=== PATIENT | male | born 1955 | race Caucasian/White ===

== ENCOUNTER → 2016-06-26 | Outpatient (CLI) | payer OTHER ==
[~2016-06-26] MED LIST: BENZOCAINE ONE 20% MUCOSAL SPRAY.; FENTANYL PF 100 MCG/2 ML VIAL. ONE; IV NORMAL SALINE 1000ML BAG 1,000 ML ONE; MIDAZOLAM HCL 2 MG/2 ML VIAL. ONE
== END | disposition home or self-care (01) ==
LOC: PCVCINTER 08:14
PROVIDERS: ATTEND Internal Medicine
DX: I48.91 Unspecified atrial fibrillation (principal); I34.0 Nonrheumatic mitral (valve) insufficiency; I37.1 Nonrheumatic pulmonary valve insufficiency; I10 Essential (primary) hypertension; E78.5 Hyperlipidemia, unspecified
CPT/HCPCS: 92960; 93005; 93312; 93325; J2250; J3010; J7030

== ENCOUNTER → 2017-02-09 | Outpatient (CLI) | payer OTHER ==
--- NOTE | 2017-02-09 18:37 | PCVCIMAG ---
APPROVED REPORT Exam: Stress Echocardiogram Indication: A Fib Ablation, HTN, HLP Patient Location: Echo lab Stress Nurse: Aaliyah Redd RN Status: routine Ht: 6 ft 4 in HR: 60 bpm BP: 156/86 mmHg Rhythm: NSR Procedure The patient underwent an Exercise Stress Test using the Humphrey Protocol. Blood pressure, heart rate, and EKG were monitored. An Echocardiogram was performed by geotechnical laboratory technician in four stages in quad fashion. At peak stress, four selected images were obtained and placed side by side with resting images for comparison. Stress Test Details Stress Test: Exercise stress testing was performed using a Humphrey protocol. HR Resting HR: 60 bpmMax Heart Rate (APMHR): 158 bpm Max HR Achieved: 136 bpmTarget HR (85% APMHR): 134 bpm % of APMHR: 86 Recovery HR: 83 bpm HR response to stress: Normal HR response to stress BP Resting BP: 156/86 mmHg Max BP: 204/80 mmHg Recovery BP: 160/80 mmHg ECG Resting ECG: Sinus Rhythm Stress ECG: Sinus Rhythm ST Change: Inferior and lateral ST depression and T wave inversion Arrhythmia: None Recovery ECG: Sinus Rhythm Recovery ST Change: ST changes resolved with recovery Recovery Arrhythmia: None Clinical Reason for Termination: Maximal effort Stress Symptoms: Dyspnea Exercise duration: 14 min 20 sec Highest Stage Achieved: Stage 5: 5.0 mph at 18% grade. Exercise capacity: 17.5 METs Overall Exercise Capacity for Age: Excellent Scale: Active Pre-Stress Echo The resting Echocardiogram showed normal left ventricular contractility with an estimated Ejection Fraction of about >55%. Normal wall motion in all segments on baseline images. Post-Stress Echo The stress Echocardiogram showed normal left ventricular contractility with an estimated Ejection Fraction of about 65%. Normal augmentation of wall motion in all segments on post stress images. Clinical Equivocal ECG evidence for ischemia. Conclusion Clinical Response: Non-ischemic Exercise Capacity: Superior Stress ECG Response: Ischemic Stress Echo Images: Non-ischemic The left ventricle is normal in size and wall thickness in both the rest and stress images. False positive EKG changes consistent with previously noted exams. Other Information Study Quality: Adequate <Conclusion> The left ventricle is normal in size and wall thickness in both the rest and stress images. False positive EKG changes consistent with previously noted exams.
== END | disposition home or self-care (01) ==
LOC: PCVCIMAG 13:48
PROVIDERS: ATTEND Internal Medicine Cardiovascular Disease
DX: I48.91 Unspecified atrial fibrillation (principal); I10 Essential (primary) hypertension; E78.00 Pure hypercholesterolemia, unspecified
CPT/HCPCS: 93325; 93351

== ENCOUNTER → 2017-02-16 | Outpatient (CLI) | payer OTHER ==
--- NOTE | 2017-02-16 12:21 | PCVCIMAG ---
APPROVED REPORT Patient Location: Out-Patient Indications Stenosis Doppler Spectral Velocity Analysis PSV / EDVPSV / EDV ICA/CCA ICA/CCA Findings The right carotid bulb has mild plaque. The right proximal internal carotid artery shows no significant stenosis. The right common carotid artery shows no significant stenosis. The right external carotid artery shows no significant stenosis. The left carotid bulb has mild calcified plaque. The left proximal internal carotid artery shows no significant stenosis. The left common carotid artery shows no significant stenosis. The left external carotid artery shows no significant stenosis. Conclusion 1. Mild plaquing involving both carotid arteries without significant stenosis 2. Antegrade vertebral flow
== END | disposition home or self-care (01) ==
LOC: PCVCIMAG 11:00
PROVIDERS: ATTEND Internal Medicine Cardiovascular Disease
DX: I65.23 Occlusion and stenosis of bilateral carotid arteries (principal); I48.91 Unspecified atrial fibrillation; I10 Essential (primary) hypertension; E78.00 Pure hypercholesterolemia, unspecified; Z87.891 Personal history of nicotine dependence; Z79.82 Long term (current) use of aspirin; Z79.899 Other long term (current) drug therapy
CPT/HCPCS: 93880

== ENCOUNTER → 2018-06-07 | Outpatient (CLI) | payer OTHER ==
--- NOTE | 2018-06-07 17:17 | PCVCIMAG ---
APPROVED REPORT Study performed: 06/07/2018 15:55:16 Exam: Stress Echocardiogram Indication: CAD Patient Location: Echo lab Stress Nurse: Treva Pires RN Room #: 2 Status: routine Ht: 6 ft 4 in HR: 69 bpm BP: 148/98 mmHg Rhythm: NSR Medical History Medical History: CAD non obstructive,, Hyperlipidemia Cardiac Risk Factors: Hyperlipidemia, FHX of CAD Previous Cardiac Procedures: a fib ablation Pretest Chest Pain Characteristics: No chest pain Exercise History: Physically active Procedure The patient underwent an Exercise Stress Test using the Humphrey Protocol. Blood pressure, heart rate, and EKG were monitored. An Echocardiogram was performed by spring manufacturing set up technician in four stages in quad fashion. At peak stress, four selected images were obtained and placed side by side with resting images for comparison. Stress Test Details Stress Test: Exercise stress testing was performed using a Humphrey protocol. HR Resting HR: 69 bpmMax Heart Rate (APMHR): 156 bpm Max HR Achieved: 126 bpmTarget HR (85% APMHR): 132 bpm % of APMHR: 80 Recovery HR: 78 bpm HR response to stress: Blunted HR response to stress BP Resting BP: 148/98 mmHg Max BP: 182/88 mmHg Recovery BP: 142/84 mmHg BP response to stress: Normal blood pressure response to stress. ECG Resting ECG: Sinus Rhythm, NSSTT changes Stress ECG: Sinus Rhythm ST Change: Downsloping ST depression Arrhythmia: Rare PAC, PVC Recovery ECG: Sinus Rhythm, nonspecific ST-T abnormalities Recovery ST Change: Downsloping ST depression Recovery ST Deviation: -1.0 mm Recovery Arrhythmia: none Clinical Reason for Termination: Maximal effort Stress Symptoms: none Exercise duration: 13 min 21 sec Highest Stage Achieved: Stage 5: 5.0 mph at 18% grade. Exercise capacity: 17.5 METs Overall Exercise Capacity for Age: Excellent Scale: Active Angina Score: None No complications. Stress ECG Conclusion The patient exercised according to the HUMPHREY protocol for 13:21 mins; achieving a work level of 17.5 METS. The resting heart rate of 69 bpm rosalino to a maximum heart rate of 126 bpm. This value represent 80% of the maximal, age-predicted heart rate. The resting blood pressure of 148/98 mmHg, rosalino to a maximum blood pressure of 182/88 mmHg. The exercise test was stopped due to fatigue and dyspnea. Abnormal EKG changes seen with exercise are a false positive change seen consistently with prior testing. Pre-Stress Echo The resting Echocardiogram showed normal left ventricular contractility with an estimated Ejection Fraction of about 55-60%. Normal wall motion in all segments on baseline images. Post-Stress Echo The stress Echocardiogram showed normal left ventricular contractility with an estimated Ejection Fraction of about 65-70%. Normal augmentation of wall motion in all segments on post stress images. Clinical No clinical or ECG evidence for ischemia. Conclusion Clinical Response: Non-ischemic Exercise Capacity: Superior Stress ECG Response: Ischemic Stress Echo Images: Non-ischemic No clinica or echocardiographic evidence for ischemia. No echocardiographic evidence for exercise induced ischemia. Normal stress echocardiogram with maximal exercise stress. False positive EKG changes seen are consistent with prior test results. <Conclusion> No clinica or echocardiographic evidence for ischemia. No echocardiographic evidence for exercise induced ischemia. Normal stress echocardiogram with maximal exercise stress. False positive EKG changes seen are consistent with prior test results.
== END | disposition home or self-care (01) ==
LOC: PCVCIMAG 16:06
PROVIDERS: ATTEND Internal Medicine Cardiovascular Disease
DX: I25.10 Atherosclerotic heart disease of native coronary artery without angina pectoris (principal); I48.91 Unspecified atrial fibrillation; R07.89 Other chest pain; I10 Essential (primary) hypertension; E78.00 Pure hypercholesterolemia, unspecified
CPT/HCPCS: 93325; 93351